=== PATIENT | male | born 1950 | race American Indian/Alaskan Native ===

== ENCOUNTER 2019-07-06 23:49 | Emergency (ER) | payer MEDICARE ==
[2019-07-06] MEDS ORDERED: COLCHICINE 0.6 MG CAP PO ONE (23:58)
[2019-07-06] MEDS ORDERED: traMADol 50 MG TAB PO ONE (23:59)
--- NOTE | 2019-07-07 00:35 | Emergency Department Report ---
ED General Adult HPI - General Chief complaint: Extremity Injury, Lower Stated complaint: WEAKNESS/LEG SWELLING Time Seen by Provider: 07/06/19 23:58 Source: patient, EMS Mode of arrival: Stretcher Limitations: No Limitations - History of Present Illness Initial comments: Patient is a 68-year-old F [place] male who was diagnosed with coronavirus approximately a week ago. Patient is complaining of bilateral foot pain and swelling, left greater than right. Patient also states he has a very mild cough occasionally and some shortness of breath with exertion. Patient main complaint is of the foot swelling. Patient's daughter stated that he has been eating less over the last several days. Patient is denying any fevers chills nausea vomiting diarrhea. Patient states he has no chest pain or shortness of breath at rest. Severity scale (0 -10): 8 - Related Data Previous Rx's Medication Instructions Recorded Last Taken Type Albuterol INH(or & Nicu Only) 2 puff IH QID PRN #1 inhalation 07/07/19 Unknown Rx [ProAir HFA Inhaler] traMADoL [Ultram] 50 mg PO Q6HR PRN #12 tablet 07/07/19 Unknown Rx Allergies Allergy/AdvReac Type Severity Reaction Status Date / Time No Known Allergies Allergy Unverified 07/07/19 00:15 ED Review of Systems ROS: Stated complaint: WEAKNESS/LEG SWELLING Other details as noted in HPI Comment: All other systems reviewed and negative ED Past Medical Hx - Past Medical History Previous Medical History?: Yes Hx COPD: Yes (emphysema) Additional medical history: Prostate cancer, COVID-19+, gout - Social History Smoking Status: Light Tobacco Smoker Substance Use Type: Marijuana - Medications Home Medications: Home Medications Medication Instructions Recorded Confirmed Last Taken Type Albuterol INH(or & Nicu Only) 2 puff IH QID PRN #1 inhalation 07/07/19 Unknown Rx [ProAir HFA Inhaler] traMADoL [Ultram] 50 mg PO Q6HR PRN #12 tablet 07/07/19 Unknown Rx ED Physical Exam - General Limitations: No Limitations General appearance: alert, in no apparent distress - Head Head exam: Present: atraumatic, normocephalic - Eye Eye exam: Present: normal appearance - ENT ENT exam: Present: mucous membranes moist - Neck Neck exam: Present: normal inspection - Respiratory Respiratory exam: Present: normal lung sounds bilaterally. Absent: respiratory distress, wheezes, rales, rhonchi - Cardiovascular Cardiovascular Exam: Present: regular rate, normal rhythm, normal heart sounds. Absent: systolic murmur, diastolic murmur, rubs, gallop - GI/Abdominal GI/Abdominal exam: Present: soft, normal bowel sounds. Absent: distended, te nderness, guarding, rebound - Rectal Rectal exam: Present: deferred - Extremities Exam Extremities exam: Present: normal inspection - Expanded Lower Extremity Exam Left Foot/Toe exam: Present: full ROM, tenderness, swelling, erythema. Absent: laceration, ecchymosis, deformity, crepidus - Back Exam Back exam: Present: normal inspection - Neurological Exam Neurological exam: Present: alert, oriented X3 - Psychiatric Psychiatric exam: Present: normal affect, normal mood - Skin Skin exam: Present: warm, dry, intact, normal color. Absent: rash ED Course Vital Signs 07/07/19 07/07/19 00:02 00:23 Temperature 99.5 F Pulse Rate 54 L Respiratory 18 20 Rate Blood Pressure 122/66 Blood Pressure 122/66 [Left] O2 Sat by Pulse 100 Oximetry ED Medical Decision Making - Radiology Data Radiology results: image reviewed (Chest x-ray shows no acute abnormality. There is no bilateral infiltrates suggestive of pneumonia. Patient has of normal size cardiac silhouette and there is no evidence of pulmonary edema at this time.) - Medical Decision Making Regarding the patient's foot swelling is most consistent with gout. Patient s tates he has had gout the past. Patient will be given 2 dose of colchicine here in emergency department and given medication for pain. Patient is coronavirus positive but appears to be doing well. He is not meeting inpatient criteria at this time. Patient will be given albuterol inhaler and appears stable for discharge. Patient vital signs are within normal limits he is showing no evidence of dehydration. Patient was asked about his decreased appetite and he states he just likes to eat small meals more frequently as opposed to one large meal. Critical care attestation.: If time is entered above; I have spent that time in minutes in the direct care of this critically ill patient, excluding procedure time. ED Disposition Clinical Impression: Gout, COVID-19 virus infection Disposition: - TO HOME OR SELFCARE Is pt being admited?: No Does the pt Need Aspirin: No Condition: Stable Additional Instructions: Please continue to consume small meals that increase frequency as opposed to 1-2 large meals per day. Supplementing with Ensure may help with your nutrition as well. With coronavirus people often lose sense of taste and smell which can affect appetite [facility] [Primary Care Provider[facility] - 7-10 days Time of Disposition: 00:35
--- NOTE | 2019-07-07 00:35 | XRay Report ---
CHEST 1 VIEW INDICATION / CLINICAL INFORMATION: shortness of breath. COMPARISON: None available. FINDINGS: SUPPORT DEVICES: None. HEART / MEDIASTINUM: No significant abnormality. LUNGS / PLEURA: No significant pulmonary or pleural abnormality. No pneumothorax. Evidence of prior r ight lung surgery. ADDITIONAL FINDINGS: No significant additional findings. IMPRESSION: 1. No acute pulmonary or pleural disease. No evidence for pneumonia at this time. Signer Name: Luciana Gavin MD Signed: 07/07/2019 12:31 AM Workstation Name: [id number]
[2019-07-07] MEDS ORDERED: COLCHICINE 0.6 MG CAP PO ONE (01:00)
[2019-07-07 02:05] VITALS: BP 99/45
== END 2019-07-07 02:05 | disposition home or self-care (01) ==
LOC: ED 23:49
DX: U07.1 COVID-19 (principal); M10.9 Gout, unspecified; J44.9 Chronic obstructive pulmonary disease, unspecified; F17.200 Nicotine dependence, unspecified, uncomplicated; F12.10 Cannabis abuse, uncomplicated; Z79.899 Other long term (current) drug therapy
CPT/HCPCS: 71045